=== PATIENT | female | born 1970 | race Caucasian/White ===

== ENCOUNTER 2017-11-17 06:41 | Emergency (ER) | payer OTHER ==
--- NOTE | 2017-11-17 07:51 | PHYS DOC ---
Past History Past Medical History: No Pertinent History Smoking: Non-smoker Alcohol Use: None Adult General Chief Complaint Chief Complaint: ANKLE PROBLEM HPI HPI 47-year-old female patient states she twisted her left ankle while playing PE at her work this morning and developed pain in lateral malleolus. Patient complaining of increasing pain with standing up and states she was not able to walk on her left foot patient denies other injuries and focal neurodeficit. Patient rated her pain 2 in sitting position and 6 with standing up. Patient states she had injury to left ankle about 10 years ago without fracture. Review of Systems Review of Systems Constitutional: Denies fever or chills [] Eyes: Denies change in visual acuity, redness, or eye pain [] HENT: Denies nasal congestion or sore throat [] Respiratory: Denies cough or shortness of breath [] Cardiovascular: No additional information not addressed in HPI [] GI: Denies abdominal pain, nausea, vomiting, bloody stools or diarrhea [] : Denies dysuria or hematuria [] Musculoskeletal: Reports joint pain [] Integument: Denies rash or skin lesions [] Neurologic: Denies headache, focal weakness or sensory changes [] Endocrine: Denies polyuria or polydipsia [] All other systems were reviewed and found to be within normal limits, except as documented in this note. Current Medications Current Medications Current Medications Medications (Trade) Dose Ordered Sig/Bridget Start Time Stop Time Status Last Admin Dose Admin Ibuprofen (Motrin) 800 mg 1X ONCE 11/17/17 07:45 11/17/17 07:46 UNV Physical Exam Physical Exam Constitutional: Well developed, well nourished, mild distress, non-toxic appearance. [] HENT: Normocephalic, atraumatic, bilateral external ears normal, oropharynx moist, no oral exudates, nose normal. [] Eyes: PERRLA, EOMI, conjunctiva normal, no discharge. [] Neck: Normal range of motion, no tenderness, supple, no stridor. [] Cardiovascular:Heart rate regular rhythm, no murmur [] Lungs & Thorax: Bilateral breath sounds clear to auscultation [] Skin: Warm, dry, no erythema, no rash. [] Back: No tenderness, no CVA tenderness. [] Extremities: Left ankle without deformity, mild edema and tenderness of lateral malleolus without neurovascular deficit Neurologic: Alert and oriented X 3, normal motor function, normal sensory function, no focal deficits noted. [] Psychologic: Affect normal, judgement normal, mood normal. [] EKG EKG [] Radiology/Procedures Radiology/Procedures [] Course & Med Decision Making Course & Med Decision Making Pertinent Imaging studies reviewed. (See chart for details) Evaluation of patient in ER showed 47-year-old female patient with twisting left ankle at work and mild edema and tenderness in lateral malleolus with negative x-ray. Patient treated with ibuprofen and ice pack in ER and felt better. Plan to apply air cast and provided crutches. Patient instructed to follow up with her primary care physician. [] Dragon Disclaimer Dragon Disclaimer This electronic medical record was generated, in whole or in part, using a voice recognition dictation system. Departure Departure: Impression: Primary Impression: Left ankle sprain Disposition: HOME, SELF-CARE (At 0823) Condition: IMPROVED Referrals: CHADD SOLO MD (PCP) Patient Instructions: Ankle Sprain Additional Instructions: Avoid of bearing weight on her left ankle Follow-up with your primary care physician in 3-5 days Return if not getting better Scripts Ibuprofen (IBUPROFEN) 800 Mg Tablet 1 TAB PO TID, #30 TAB Prov: ALF MOYER MD 11/17/17 ALF MOYER MD Nov 17, 2017 07:51
[2017-11-17] MEDS ORDERED: IBUPROFEN 800 MG TABLET. PO ONE (08:00)
--- NOTE | 2017-11-17 08:01 | RAD ---
Left ankle, 3 views, 11/17/2017: History: Twisting injury while running, pain No fracture or dislocation is identified. IMPRESSION: No acute bony abnormality is detected.
[2017-11-17] MEDS ORDERED: IBUP800T19 PO (08:25)
[2017-11-17 08:42] VITALS: BP 152/101
== END 2017-11-17 08:42 | disposition home or self-care (01) ==
LOC: ER 06:41
DX: S93.402A Sprain of unspecified ligament of left ankle, initial encounter (principal); X50.1XXA Overexertion from prolonged static or awkward postures, initial encounter; Y93.89 Activity, other specified; Y99.8 Other external cause status; Y92.89 Other specified places as the place of occurrence of the external cause
CPT/HCPCS: 29515; 73610; 99284-25

== ENCOUNTER 2018-04-02 20:20 | Emergency (ER) | payer OTHER ==
[~2018-04-02] VITALS: Ht 162.6 cm; Wt 65.8 kg
[2018-04-02 20:20] VITALS: BP 138/89
[~2018-04-02 20:20] MED LIST: IBUP800T19 PO
[2018-04-02] MEDS ORDERED: HYDR-971 PO (21:03)
--- NOTE | 2018-04-02 21:03 | RAD ---
EXAM: LEFT ANKLE 3 VIEWS. HISTORY: Trauma. COMPARISON: November 17, 2017 FINDINGS: Three views of the left ankle are obtained. There is soft tissue swelling medially greater than laterally. No fractures are identified. Alignment is normal. Joint spaces are maintained. IMPRESSION: 1. Soft tissue swelling. No fracture. Electronically signed by: Dandy Marroquin MD (04/02/2018 8:59 PM) [facility]
--- NOTE | 2018-04-02 21:03 | PHYS DOC ---
Past History Past Medical History: Hypertension Past Surgical History: No Surgical History Smoking: Non-smoker Alcohol Use: None Drug Use: None Adult General Chief Complaint Chief Complaint: FOOT INJURY PAIN HPI HPI 47-year-old female presents with left ankle injury. She was trying to push a car up on a ramp and twisted her ankle. She denies any other injuries. She states she had a similar injury back in October 2017. She states the pain is very mild right now does not need a pain pill. She states it is painful if she tries to walk.[] Review of Systems Review of Systems Constitutional: Denies fever or chills [] Eyes: Denies change in visual acuity, redness, or eye pain [] HENT: Denies nasal congestion or sore throat [] Respiratory: Denies cough or shortness of breath [] Cardiovascular: No additional information not addressed in HPI [] GI: Denies abdominal pain, nausea, vomiting, bloody stools or diarrhea [] : Denies dysuria or hematuria [] Musculoskeletal: Per history of present illness[] Integument: Denies rash or skin lesions [] Neurologic: Denies headache, focal weakness or sensory changes [] Endocrine: Denies polyuria or polydipsia [] All other systems were reviewed and found to be within normal limits, except as documented in this note. Allergies Allergies Allergies Coded Allergies Type Severity Reaction Last Updated Verified Penicillins Allergy Unknown 11/17/17 Yes Physical Exam Physical Exam Constitutional: Well developed, well nourished, no acute distress, non-toxic appearance. [] HENT: Normocephalic, atraumatic, bilateral external ears normal, oropharynx moist, no oral exudates, nose normal. [] Eyes: PERRLA, EOMI, conjunctiva normal, no discharge. [] Neck: Normal range of motion, no tenderness, supple, no stridor. [] Cardiovascular:Heart rate regular rhythm, no murmur [] Lungs & Thorax: Bilateral breath sounds clear to auscultation [] Abdomen: Bowel sounds normal, soft, no tenderness, no masses, no pulsatile masses. [] Skin: Warm, dry, no erythema, no rash. [] Back: No tenderness, no CVA tenderness. [] Extremities: Left ankle is swollen no obvious deformity there is some ecchymosis over the medial malleolus[] Neurologic: Alert and oriented X 3, normal motor function, normal sensory function, no focal deficits noted. [] Psychologic: Affect normal, judgement normal, mood normal. [] Current Patient Data Vital Signs Vital Signs Date Time Temp Pulse Resp B/P (MAP) Pulse Ox O2 Delivery O2 Flow Rate FiO2 04/02/18 20:20 97.9 66 18 99 Room Air EKG EKG [] Radiology/Procedures Radiology/Procedures [] Impressions: Left ankle x-ray: Negative exam as interpreted by me no change from October 2017 Course & Med Decision Making Course & Med Decision Making Pertinent Labs and Imaging studies reviewed. (See chart for details) [] Dragon Disclaimer Dragon Disclaimer This electronic medical record was generated, in whole or in part, using a voice recognition dictation system. Departure Departure: Impression: Primary Impression: Left ankle sprain Disposition: HOME, SELF-CARE Condition: STABLE Referrals: CHADD SOLO MD (PCP) Patient Instructions: Ankle Sprain, Ankle Sprain, Acute, with Phase I Rehab- [facility], Ankle Sprain, Acute, with Phase II Rehab-[facility] Scripts Hydrocodone Bit/Acetaminophen (NORCO 5-325 TABLET) 1 Each Tablet 1-2 TAB PO Q4-6HRS for PAIN, #12 TAB Prov: JANNETTE GOTTLIEB DO 04/02/18 Problem Qualifiers Primary Impression: Left ankle sprain Encounter type: initial encounter Involved ligament of ankle: unspecified ligament Qualified Codes: S93.402A - Sprain of unspecified ligament of left ankle, initial encounter JANNETTE GOTTLIEB DO Apr 02, 2018 21:03
== END 2018-04-02 21:14 | disposition home or self-care (01) ==
LOC: ER 20:20
DX: S93.402A Sprain of unspecified ligament of left ankle, initial encounter (principal); I10 Essential (primary) hypertension; Z88.0 Allergy status to penicillin; X50.9XXA Other and unspecified overexertion or strenuous movements or postures, initial encounter; Y93.89 Activity, other specified; Y99.8 Other external cause status; Y92.89 Other specified places as the place of occurrence of the external cause
CPT/HCPCS: 73610; 99284